=== PATIENT | female | born 1965 | race African-American/Black ===

== ENCOUNTER → 2020-04-17 | Outpatient (CLI) | payer OTHER | LOC: CAT 10:29 | PROVIDERS: ATTEND Internal Medicine Cardiovascular Disease | DX: Z13.6 Encounter for screening for cardiovascular disorders (principal); I25.10 Atherosclerotic heart disease of native coronary artery without angina pectoris; E78.00 Pure hypercholesterolemia, unspecified ==

== ENCOUNTER → 2020-04-17 | Outpatient (CLI) | payer OTHER ==
--- NOTE | 2020-04-17 13:51 | 2DMMODE ---
[facility] [place] [address] 2 D/M-MODE ECHOCARDIOGRAM Name: BRAYDEN ROBISON Room #: REG Tasha CadenAlisaCaden#: [id number] Admission: 04/17/20 Attend Phys: Roland Wagner MD Discharge: Date of : 61 Report #: [id number] THIS REPORT FOR: cc: Mansi Mcpherson MD, Sequita MD Park, Jin S. MD ~ APPROVED REPORT Study performed: 04/17/2020 10:50:41 EXAM: Comprehensive 2D, Doppler, and color-flow Echocardiogram Patient Location: Out-Patient Room #: 2 Status: routine BSA: 1.71 HR: 63 bpm BP: 118/68 mmHg Rhythm: NSR Other Information Study Quality: Good Indications Chest Pain Hypertension/HDD 2D Dimensions RVDd: 33.64 mm IVSd: 10.49 (7-11mm) LVOT Diam: 20.88 (18-24mm) LVDd: 46.99 mm PWd: 8.67 (7-11mm) Ascending Ao: 27.43 (22-36mm) LVDs: 36.59 (25-40mm) Aortic Root: 28.01 mm IVC: 22.00 mm Volumes Left Atrial Volume (Systole) Single Plane 4CH: 48.53 mL Single Plane 2CH: 54.12 mL LA ESV Index: 32.00 mL/m2 Aortic Valve AoV Peak Obie.: 1.34 m/s AO Peak Gr.: 7.14 mmHg LVOT Max P.51 mmHg LVOT Max V: 1.06 m/s FIOR Vmax: 2.72 cm2 [facility] [address] [place] [address] 2 D/M-MODE ECHOCARDIOGRAM Name: BRAYDEN ROBISON Room #: REG CL [facility]#: [id number] Admission: 04/17/20 Attend Phys: Roland Wagner MD Discharge: Date of : 61 Report #: [id number] Mitral Valve E/A Ratio: 1.1 MV Decel. Time: 190.87 ms MV E Max Obie.: 1.00 m/s MV A Obie.: 0.92 m/s IVRT: 110.73 ms Pulmonary Valve PV Peak Obie.: 0.78 m/s PV Peak Gr.: 2.46 mmHg Pulmonary Vein P Vein S: 0.56 m/s P Vein A: 0.25 m/s P Vein D: 0.31 m/s P Vein A Dur.: 124.6 msec P Vein S/D Ratio: 1.81 Tricuspid Valve TR Peak Obie.: 2.09 m/s TR Peak Gr.: 17.55 mmHg PA Pressure: 28.00 mmHg Left Ventricle The left ventricle is normal size. There is normal LV segmental wall motion. There is normal left ventricular wall thickness. The left ventricular systolic function is normal. The left ventricular ejection fraction is within the normal range. LVEF is 55-60%. Right Ventricle The right ventricle is normal size. The right ventricular systolic function is normal. Atria The left atrium size is normal. The right atrium size is normal. Aortic Valve The aortic valve is normal in structure. No aortic regurgitation is present. There is no aortic valvular stenosis. Mitral Valve The mitral valve is normal in structure. There is no mitral valve regurgitation noted. No evidence of mitral valve stenosis. Tricuspid Valve The tricuspid valve is normal in structure. There is trace tricuspid regurgitation. Estimated PAP 23 mmHg. [facility] [place] [address] 2 D/M-MODE ECHOCARDIOGRAM Name: BRAYDEN ROBISON Room #: REG CL [facility]#: [id number] Admission: 04/17/20 Attend Phys: Roland Wagner MD Discharge: Date of : 61 Report #: [id number] Pulmonic Valve The pulmonary valve is normal in structure. There is no pulmonic valvular regurgitation. Great Vessels The aortic root is normal in size. IVC is dilated and collapses >50% with inspiration. Pericardium There is no pericardial effusion. <Conclusion> The left ventricle is normal size. There is normal left ventricular wall thickness. The left ventricular systolic function is normal. The right ventricle is normal size. The left atrium size is normal. The aortic valve is normal in structure. The mitral valve is normal in structure. There is trace tricuspid regurgitation. Estimated PAP 23 mmHg. <ELECTRONICALLY SIGNED> By: Roland Wagner MD 04/17/20 135 50 50 Roland Wagner MD /INF
--- NOTE | 2020-04-17 13:54 | TST ---
[facility] [place] [address] TREADMILL STRESS TEST Name: BRAYDEN ROBISON Room #: REG NATALIA Gale#: [id number] Admission: 04/17/20 Attend Phys: Roland Wagner MD Discharge: Date of : 61 Report #: [id number] THIS REPORT FOR: cc: Mansi Mcpherson MD,Mansi Wagner,Roland Ng MD ~ THIS REPORT FOR: //name// APPROVED REPORT Patient Location: Out-Patient Room #: 2 Stress Nurse: Barbie Olmos RN The patient exercised according to the VICKY protocol for 7 mins; achieving a work level of 10 METS. The resting heart rate of 62 bpm kofi to a maximum heart rate of 157 bpm. This value represent 96% of the maximal, age-predicted heart rate. The resting blood pressure of 118/68 mmHg, kofi to a maximum blood pressure of 156/78 mmHg. The exercise test was stopped due to fatigue Conclusion 1. Clinical response, nonischemic. 2. Stress ECG response, nonischemic. 3. Exercise capacity, average <ELECTRONICALLY SIGNED> By: Roland Wagner MD 04/17/20 1354 1354 1354 Roland Wagner MD /INF
== END ==
LOC: CV 10:23
PROVIDERS: ATTEND Internal Medicine Cardiovascular Disease
DX: R07.9 Chest pain, unspecified (principal)

== ENCOUNTER 2020-09-14 02:21 | Emergency (ER) | payer OTHER ==
[~2020-09-14] VITALS: Ht 162.6 cm; Wt 65.8 kg
[2020-09-14] MEDS ORDERED: NORVASC 2.5 MG2.5 M1 PO (02:30)
[2020-09-14 03:36] VITALS: BP 161/94
== END 2020-09-14 03:37 | disposition home or self-care (01) ==
LOC: ER 02:21
DX: I10 Essential (primary) hypertension (principal); K21.9 Gastro-esophageal reflux disease without esophagitis; Z90.710 Acquired absence of both cervix and uterus; Z86.2 Personal history of diseases of the blood and blood-forming organs and certain disorders involving the immune mechanism; Z79.899 Other long term (current) drug therapy; Z88.2 Allergy status to sulfonamides; Z88.5 Allergy status to narcotic agent